=== PATIENT | male | born 1950 | race Hispanic/Latino ===

== ENCOUNTER 2019-04-05 12:15 | Day surgery (SDC) | payer MEDICARE ==
[2019-04-05] MEDS ORDERED: ceFAZolin/STERILE WATER 2 GM/20 ML SYRINGE IV NR (13:00)
[2019-04-05] MEDS ORDERED: ONDANSETRON 4 MG/2 ML INJ IV PRN (13:24)
[2019-04-05] MEDS ORDERED: fentaNYL 100 MCG/2 ML INJ IV PRN (13:24)
[2019-04-05] MEDS ORDERED: MAGNESIUM OXIDE 400 MG TAB PO ONE (13:24)
--- NOTE | 2019-04-05 13:25 | Anesthesia Day of Surgery ---
Anesthesia Day of Surgery - Day of Surgery Patient Examined: Yes Patient H&P Reviewed: Yes Patient is NPO: Yes
--- NOTE | 2019-04-05 13:26 | Anesthesia Consultation ---
Anesthesia Consult and Med Hx Date of service: 04/05/19 - Airway Anesthetic Teeth Evaluation: Good ROM Head & Neck: Adequate Mental/Hyoid Distance: Adequate Mallampati Class: Class II Intubation Access Assessment: Probably Good - Pre-Operative Health Status ASA Pre-Surgery Classification: ASA3 Proposed Anesthetic Plan: General - Pulmonary Hx Smoking: No Hx Sleep Apnea: Yes (DX SLEEP APNEA WITH CPAP USE.) - Cardiovascular System Hx Hypertension: Yes (X 20 YRS. Pt states he can climb two flights of stairs) - Hematic Hx Anemia: Yes (NOT RECENT) - Other Systems Hx Cancer: No
[2019-04-05] MEDS ORDERED: LIDOCAINE MPF (2%) 20 MG/1 ML VIAL 5 ML ONE (13:40)
[2019-04-05] MEDS ORDERED: fentaNYL 100 MCG/2 ML INJ ONE (13:40)
[2019-04-05] MEDS ORDERED: PROPOFOL 200 MG/20 ML VIAL IV ONE (13:40)
[2019-04-05] MEDS ORDERED: MIDAZOLAM 2 MG/2 ML INJ ONE (13:49)
[2019-04-05] MEDS ORDERED: LACTATED RINGERS 1,000 ML IV SCH (14:00)
[2019-04-05] MEDS ORDERED: MIDAZOLAM 2 MG/2 ML INJ IV ONE (14:00)
[2019-04-05] MEDS ORDERED: ACETAMINOPHEN 325 MG TAB PO ONE (14:00)
[2019-04-05] MEDS ORDERED: CELECOXIB 200 MG CAP PO SCH (14:00)
[2019-04-05] MEDS ORDERED: WATER FOR IRRIG STERILE 2000 ML IR ONE (15:39)
--- NOTE | 2019-04-05 15:52 | Post Operative Note ---
Date of procedure: 04/05/19 Pre-op diagnosis: bph Post-op diagnosis: same Findings: trilobar Procedure: cysto rezum Anesthesia: GETA Surgeon: SEBASTIAN BRIGGS Estimated blood loss: none Pathology: none Specimen disposition: to lab Disposition: PACU
--- NOTE | 2019-04-05 15:54 | Discharge Summary ---
Short Stay Discharge Plan Activity: other (no straining ) Diet: low fat Special Instructions: other (inc fluids ) Durable Medical Equipment Needed Upon Discharge: other (teach cath care ) Follow up with: MATT NOGUERA [Other] - 7 Days SEBASTIAN BRIGGS MD [Staff Physician] - 7 Days
--- NOTE | 2019-04-05 16:33 | Operative Report ---
PREOPERATIVE DIAGNOSES: Severe bladder outlet obstruction, very high IPSS 50-gram prostate. POSTOPERATIVE DIAGNOSES: Severe bladder outlet obstruction, very high IPSS 50-gram prostate. PROCEDURE: Cystoscopy, resume. SURGEON: Dr. Ryan. ANESTHESIA: General. 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 The best option probably is TURP, but he wanted to try to avoid it. He now presents for resume. He is not a candidate for a UroLift. DESCRIPTION OF PROCEDURE: The patient was brought to the operating room and placed on the operating table. Following induction of anesthesia, placed in lithotomy position, prepped and draped in usual sterile fashion. Cystourethroscopy showed trilobar hypertrophy. Large middle lobe. Pictures were taken. We started at the middle lobe. We came back about a cm once on the right side than the left side, did the middle lobe and then did one stick on each lateral lobe. The patient tolerated the procedure well. No significant complication. No significant bleeding and a #20 coude easily passed after the resume was removed, brought to recovery in stable condition. JOB# [id number] NALDO/SHASHI
[2019-04-05 16:59] VITALS: BP 155/65
--- NOTE | 2019-04-05 17:29 | Post Anesthesia Evaluation ---
- Post Anesthesia Evaluation Patient Participated: Yes Airway Patent: Yes Stable Respiratory Function: Yes Nausea/Vomiting: No Temp > 96.8F: Yes Pain Manageable: Yes Adequeate Hydration: Yes Anesthesia Complications: No
== END 2019-04-05 18:05 | disposition home or self-care (01) ==
LOC: OR 12:15
PROVIDERS: ATTEND Urology
DX: N32.0 Bladder-neck obstruction (principal); N40.1 Benign prostatic hyperplasia with lower urinary tract symptoms; F41.9 Anxiety disorder, unspecified; G47.30 Sleep apnea, unspecified; I10 Essential (primary) hypertension; D64.9 Anemia, unspecified; Z79.899 Other long term (current) drug therapy; Z79.4 Long term (current) use of insulin; Z98.890 Other specified postprocedural states
CPT/HCPCS: 52000; 82962; A4217; J0690; J2250; J2704; J3010; J7120